=== PATIENT | female | born 1990 ===

== ENCOUNTER 2024-08-09 22:15 | Emergency (ER) | payer OTHER ==
[~2024-08-09] VITALS: Ht 175.2 cm
== END 2024-08-09 22:58 | disposition home or self-care (01) ==
LOC: ED 22:15
DX: O26.893 Other specified pregnancy related conditions, third trimester (principal); R10.10 Upper abdominal pain, unspecified; Z3A.28 28 weeks gestation of pregnancy; Z88.8 Allergy status to other drugs, medicaments and biological substances